=== PATIENT | male | born 1970 | race African-American/Black ===

== ENCOUNTER 2017-12-09 15:12 | Emergency (ER) | payer SELFPAY | END 2017-12-09 17:35 | disposition left against medical advice (07) | LOC: ER 15:12 | DX: G89.29 Other chronic pain (principal); M79.674 Pain in right toe(s); M79.675 Pain in left toe(s); F20.9 Schizophrenia, unspecified; F17.210 Nicotine dependence, cigarettes, uncomplicated; F10.10 Alcohol abuse, uncomplicated; Z88.6 Allergy status to analgesic agent | CPT/HCPCS: 73630; 99284 ==